=== PATIENT | female | born 1980 | race Caucasian/White ===

== ENCOUNTER 2022-11-10 11:58 | Inpatient (IN) | payer MEDICAID ==
[~2022-11-10] VITALS: Ht 157.5 cm; Wt 104.3 kg
[2022-11-10] MEDS ORDERED: VANCOMYCIN 1G PREMIX 200 ML IV STA (12:19)
[2022-11-10 13:15] LABS: BASOPHILS % 0.7 % (0.0-2.0); DIFFERENTIAL COMMENT 0; EOSINOPHILS % 1.8 % (0.0-5.0); HEMATOCRIT. 32.3 % (36.0-48.0); HEMOGLOBIN. 10.4 g/dL (12.0-16.0); LYMPHOCYTES % 23.5 % (20.0-50.0); MEAN CORPUSCULAR HEMOGLOBIN 23.1 pg (28.0-32.0); MEAN CORPUSCULAR HGB CONC 32.1 g/dL (31.0-37.0); MEAN PLATELET VOLUME 8.3 fl (7.4-10.4); MONOCYTES % 7.4 % (2.0-8.0); NEUTROPHILS % 66.6 % (40.0-76.0); PLATELET 256 x1000/uL (130-400); RED BLOOD CELL COUNT 4.48 mill/uL (4.2-5.4); RED CELL DISTRIBUTION WIDTH 15.4 % (11.6-14.6); WHITE BLOOD COUNT 5.6 x1000/uL (4.5-11.0)
[2022-11-10 13:22] LABS: CHLORIDE 103 mEq/L (98-107); INDEX HEMOLYSI 1 (1-3); INDEX ICTERIC 1 (1-4); INDEX LIPEMIC 1 (1-3); POTASSIUM 3.4 mEq/L (3.5-5.1); SODIUM 135 mEq/L (136-145)
[2022-11-10 13:30] LABS: ALANINE AMINOTRANSFERASE 120 IU/L (13-61); ALBUMIN 3.4 g/dL (3.4-5.0); ASPARTATE AMINOTRANSFERASE 66 IU/L (15-37); BILIRUBIN TOTAL 0.2 mg/dL (0.1-1.0); CALCIUM 8.6 mg/dL (8.5-10.1); CARBON DIOXIDE 26 mEq/L (21-32); CREATININE 0.4 mg/dL (0.6-1.3); GLUCOSE 187 mg/dL (70-105); PROTEIN TOTAL 7.6 g/dL (6.0-8.3); UREA NITROGEN BLOOD 7 mg/dL (7-21)
[2022-11-10 13:35] LABS: HCG SCREEN NEGATIVE
[2022-11-10] MEDS ORDERED: VANCOMYCIN 1.5 GM/250 ML IV NR (16:15)
[2022-11-10] MEDS ORDERED: DEXTROSE 50% WATER 50ML SYRINGE IV PRN (16:30)
[2022-11-10] MEDS ORDERED: ONDANSETRON HCL 4MG/2ML INJ IV PRN (16:30)
[2022-11-10] MEDS ORDERED: ACETAMINOPHEN 325MG TABLET PO PRN (16:30)
[2022-11-10] MEDS ORDERED: *PATIENT'S OWN MEDICATION STORAGE XX SCH (17:45)
[2022-11-10] MEDS: INSULIN LISPRO 100 UNITS/ML SUBCUT SCH ×2 (17:50→21:00)
[2022-11-10] MEDS ORDERED: CEFTRIAXONE 1,000 MG in DEXTROSE 5% WATER 50 ML IV SCH (18:00)
[2022-11-10] MEDS: BLOOD SUGAR DIAGNOSTIC STRIP TEST SCH ×2 (18:07→21:00)
[2022-11-10] MEDS ORDERED: CLONIDINE 0.1MG TABLET PO PRN (18:30)
[2022-11-10] MEDS ORDERED: DIPHENHYDRAMINE 25MG CAPSULE PO PRN (18:30)
[2022-11-10] MEDS ORDERED: DIPHENHYDRAMINE 50MG/ML VIAL IV PRN (18:45)
[2022-11-10 20:00] VITALS: BP 120/65; PULSE 75; RESP 20; TEMP 99.1
[2022-11-10] MEDS ORDERED: POTASSIUM CHLORIDE 20MEQ TABLET SR PO NR (20:00)
[2022-11-10 20:35] VITALS: BP 133/73; PULSE 67; RESP 18; TEMP 96.8
[2022-11-10] MEDS: ATORVASTATIN CALCIUM 10MG TABLET PO SCH (21:09)
[2022-11-11] VITALS: BP 122/70; PULSE 67; RESP 18; TEMP 98.2
[2022-11-11 04:00] VITALS: BP 134/76; PULSE 75; RESP 20; TEMP 98.1
[2022-11-11] MEDS: VANCOMYCIN 1G PREMIX 200 ML IV SCH ×2 (05:29→18:00)
[2022-11-11] MEDS: BLOOD SUGAR DIAGNOSTIC STRIP TEST SCH ×4 (06:39→21:00)
[2022-11-11] MEDS: INSULIN LISPRO 100 UNITS/ML SUBCUT SCH ×4 (07:50→21:00)
[2022-11-11 08:00] VITALS: BP 115/55; PULSE 73; RESP 20; TEMP 97.5
[2022-11-11] MEDS: AMLODIPINE 10MG TABLET PO SCH (08:30)
[2022-11-11] MEDS: LOSARTAN 100 MG TABLET PO SCH (08:30)
[2022-11-11] MEDS: METFORMIN HCL 500MG TABLET PO SCH ×2 (08:31→18:26)
[2022-11-11 12:00] VITALS: BP 112/58; PULSE 79; RESP 19; TEMP 97.6
[2022-11-11] MEDS ORDERED: DIPHENHYDRAMINE 25MG CAPSULE PO PRN (13:00)
[2022-11-11 16:00] VITALS: BP 104/47; PULSE 70; RESP 19; TEMP 97.5
[2022-11-11] MEDS ORDERED: CEFTRIAXONE 1,000 MG in DEXTROSE 5% WATER 50 ML IV SCH (17:00)
[2022-11-11 20:00] VITALS: BP 126/56; PULSE 78; RESP 18; TEMP 97.3
[2022-11-11] MEDS: ATORVASTATIN CALCIUM 10MG TABLET PO SCH (20:58)
[2022-11-12 04:00] VITALS: BP 104/35; PULSE 69; RESP 18; TEMP 97.9
[2022-11-12] MEDS: VANCOMYCIN 1G PREMIX 200 ML IV SCH (06:47)
[2022-11-12] MEDS: BLOOD SUGAR DIAGNOSTIC STRIP TEST SCH ×2 (07:05→12:13)
[2022-11-12] MEDS: METFORMIN HCL 500MG TABLET PO SCH (07:50)
[2022-11-12] MEDS: INSULIN LISPRO 100 UNITS/ML SUBCUT SCH ×2 (07:50→12:50)
[2022-11-12 08:00] VITALS: BP 123/69; PULSE 68; RESP 20; TEMP 97.9
[2022-11-12] MEDS: LOSARTAN 100 MG TABLET PO SCH (09:03)
[2022-11-12] MEDS: AMLODIPINE 10MG TABLET PO SCH (09:04)
[2022-11-12] MEDS ORDERED: AMOX1TAB16 MT (10:00)
[2022-11-12] MEDS ORDERED: SULF1TAB48 MT (10:00)
[2022-11-12 10:18] LABS: CALCIUM 8.9 mg/dL (8.5-10.1); CHLORIDE 106 mEq/L (98-107); INDEX HEMOLYSI 1 (1-3); INDEX ICTERIC 1 (1-4); INDEX LIPEMIC 1 (1-3); POTASSIUM 3.9 mEq/L (3.5-5.1); SODIUM 137 mEq/L (136-145)
[2022-11-12 10:24] LABS: CARBON DIOXIDE 22 mEq/L (21-32); CREATININE 0.5 mg/dL (0.6-1.3); GLUCOSE 181 mg/dL (70-105); UREA NITROGEN BLOOD 8 mg/dL (7-21); VANCOMYCIN TROUGH 9.9 ug/mL (5.0-10.0)
[2022-11-12 13:48] VITALS: BP 127/66; PULSE 76; TEMP 98.1; O2SAT 97
== END 2022-11-12 15:30 | disposition home or self-care (01) | DRG 383 ==
LOC: ER 11:58 → 6WST 13:35 → EDBEDREQTM 13:51 → EDBEDREQ 13:51
PROVIDERS: ADMIT Internal Medicine; ATTEND Internal Medicine
DX: L03.115 Cellulitis of right lower limb (principal); E11.42 Type 2 diabetes mellitus with diabetic polyneuropathy; D50.9 Iron deficiency anemia, unspecified; E66.01 Morbid (severe) obesity due to excess calories; E87.6 Hypokalemia; R23.4 Changes in skin texture; Z68.41 Body mass index [BMI] 40.0-44.9, adult; I10 Essential (primary) hypertension; R74.01 Elevation of levels of liver transaminase levels; Z91.041 Radiographic dye allergy status
CPT/HCPCS: 36415; 73630; 76881; 80048; 80053; 80202; 82962; 84145; 84703; 85025; 99285; J0696; J1200; J3370; J7060; Q0163